=== PATIENT | female | born 1990 | race Caucasian/White ===

== ENCOUNTER → 2020-03-01 15:51 | Outpatient (BNVA) | payer OTHER, SELFPAY | PROVIDERS: Family Provider Family Medicine; PCP Family Medicine; Visit Provider Nurse Practitioner Family | DX: J02.9 Acute pharyngitis, unspecified (principal); R05 Cough; Z20.828 Contact with and (suspected) exposure to other viral communicable diseases | CPT/HCPCS: 87635 ==

== ENCOUNTER → 2020-07-24 09:13 | Outpatient (BNVA) | payer BC, SELFPAY | PROVIDERS: Family Provider Family Medicine; PCP Family Medicine; Visit Provider Nurse Practitioner Family | DX: M47.897 Other spondylosis, lumbosacral region (principal); M54.2 Cervicalgia; G89.29 Other chronic pain; M54.6 Pain in thoracic spine; M54.5 Low back pain | CPT/HCPCS: 72040; 72070; 72100 ==

== ENCOUNTER → 2021-03-07 14:09 | Outpatient (BNVA) | payer BC, SELFPAY | PROVIDERS: Family Provider Family Medicine; PCP Family Medicine; Visit Provider Nurse Practitioner Family | DX: R05.9 Cough, unspecified (principal); J39.8 Other specified diseases of upper respiratory tract; R06.02 Shortness of breath; R07.1 Chest pain on breathing; I42.9 Cardiomyopathy, unspecified | CPT/HCPCS: 71046; 80053; 83880; 85025 ==

== ENCOUNTER → 2022-12-05 13:56 | Outpatient (BNVA) | payer BC, SELFPAY | PROVIDERS: Family Provider Family Medicine; PCP Family Medicine; Visit Provider Nurse Practitioner Family | DX: J02.9 Acute pharyngitis, unspecified (principal) | CPT/HCPCS: 87071 ==

== ENCOUNTER 2023-05-12 10:32 | Emergency (ER) | payer BC, SELFPAY ==
--- NOTE | 2023-05-12 10:35 | XRR_ITS ---
PROCEDURE INFORMATION: Exam: XR Chest Exam date and time: 05/12/2023 10:52 AM Age: 33 years old Clinical indication: Chest wall pain; Additional info: Cp.No history of trauma or recent surgery is provided. TECHNIQUE: Imaging protocol: Radiologic exam of the chest. 1image(s) are provided. Views: 1 view. COMPARISON: 1. CR XR chest 2V* [id number] 03/07/2021 2:14 PM. Thoracic report 07/24/2020. 2. CR XR chest 1V [id number] 11/01/2018 2:[address] angio chest PE protcl [id number] 01/27/2018 3:26 AM FINDINGS: Lungs: There are chronic granulomatous changes present similar overall.No lobar consolidation is appreciated. There is minimal subsegmental atelectasis versus post inflammatory scarring demonstrated. Pleural spaces: No pneumothorax or significant pleural effusion is appreciated. Heart/Mediastinum: The cardiomediastinal silhouette is within normal. No cardiac decompensation is appreciated. Diaphragm: The hemidiaphragms are relatively symmetric. Bones/joints: Osseous alignment is maintained.No interval displaced fracture or dislocation is appreciated. Soft tissues: No radiopaque foreign body or subcutaneous emphysema is appreciated. Other findings: No other significant interval changes are appreciated. XR/XR chest 1V portable [id number] IMPRESSION: No lobar consolidation is appreciated.No interval acute cardiopulmonary changes are appreciated.
--- NOTE | 2023-05-12 10:40 | ECG_ITS ---
[facility] Test Date: 2023-05-12 Pat Name: Sunita Murphy Department: Room: Gender: Female Pbx Manager: : 1990 Requested By: Susanne Anglin Order Number: [id number] Dinora MD: April Freeman M.D. Measurements Intervals [place] Rate: 91 P: 64 DE: 167 QRS: 61 QRSD: 106 T: 60 QT: 355 QTc: 437 Interpretive Statements SINUS RHYTHM INCOMPLETE RIGHT BUNDLE BRANCH BLOCK [90+ ms QRS DURATION, TERMINAL R IN V1/V2, 40+ ms S IN I/aVL/V4/V5/V6] No previous ECG available for comparison Electronically Signed On 05-13-2023 0:31:00 MAGNETIC PROSPECTING OPERATOR by April Freeman M.D. [id number]
[2023-05-12 10:54] VITALS: BP 143/90; PULSE 85; RESP 17; TEMP 37.1; O2SAT 98; BMI 34.4
[2023-05-12 11:03] LABS: Basophils # 0.1 10^3/uL (0.0-0.1); Basophils % 0.6 %; Eosinophils # 0.2 10^3/uL (0.0-0.8); Eosinophils % 1.7 %; Hematocrit 44.4 % (36-47); Lymphocytes # 2.8 10^3/uL (0.8-4.8); Lymphocytes % 27.5 %; Mean Corpuscular HGB Conc 32.7 g/dL (30-55); Mean Corpuscular Volume 91.7 fl (85-98); Mean Platelet Volume 9.3 fL (7.4-10.4); Monocytes # 0.7 10^3/uL (0.2-0.9); Monocytes % 6.7 %; Neutrophils # 6.34 10^3/uL (1.8-7.7); Neutrophils % 63.3 %; Nucleated Red Blood Cells % 0 %; Platelet Count 240 10^3/cmm (157-399); Red Blood Count 4.84 10^6/uL (3.85-5.65); Red Cell Distribution Width 12.2 % (12.1-15.1); White Blood Count 10.02 10^3/uL (3.29-11.43)
--- NOTE | 2023-05-12 11:12 | ED_ITS ---
HPI - URI/Sore Throat 2 General: Chief Complaint: Upper Respiratory Infection Stated Complaint: chest pain Time Seen by Provider: 05/12/23 10:57 Source: patient Mode of arrival: ambulatory Limitations: no limitations History of Present Illness: 33-year-old female with history of postp artum cardiomyopathy 5 years ago states she has had cough congestion over the last 2 days. States she been having some sharp stabbing pains in her chest especially with her cough. She had some dyspnea denies any fever she denies any worsening improving factors states her pain is currently a 2 out of 10. Denies any extremity swelling. Associated symptoms: Reports chest pain; Deny abdominal pain, chills, diarrhea, fever(s), headache(s), nausea or vomiting Review of Systems 2 Const: Denies: fever(s), chills, body aches or change in appetite ENMT: Denies: throat pain or dental pain Card: Reports: chest pain Resp: Reports: dyspnea and non-productive cough GI: Denies: abdominal pain, nausea, vomiting or diarrhea Musc: Denies: neck pain or back pain Skin/Breast: Denies: rash Neuro: Denies: headache(s) PFSH ED 2 PFSH: Medical History (Updated 05/12/23 @ 12:05 by Susanne Anglin MD) Cardiomyopathy Hx LEEP (loop electrosurgical excision procedure), cervix, Surgical History Hx of myringotomy Hx of tonsillectomy Family History Other CAD (coronary artery disease) Cancer Diabetes Social History Smoking and tobacco/nicotine status: never used tobacco/nicotine Quit status (tobacco/nicotine): has tried quititng Second hand smoke exposure: Yes Lives independently: Yes Household members: spouse and children Marital status: Current occupational status: employed Current gender identity: Female Female Reproductive History: Para: 5 Physical Exam 2 Const: COMMON NORMALS: no acute distress, patient oriented x3 and healthy appearing HENMT: COMMON NORMALS: normocephalic and atraumatic HEAD & SCALP: n ormocephalic and atraumatic Eye: COMMON NORMALS: Equal, round and reactive pupils present and EOMs intact bilaterally PUPIL: Yes Equal, round and reactive pupils present Neck/C-Spine: COMMON NORMALS: full ROM and supple Chest: COMMONS NORMALS: normal inspection of the chest and normal palpation of entire chest wall Resp: COMMON NORMALS: normal respiratory effort, No retractions, No use of accessory muscles and clear to auscultation bilaterally AUSCULTATION: clear to auscultation bilaterally Cardio: COMMON NORMALS: regular rate, regular rhythm and No murmurs present (Cardio) RATE: regular rate RHYTHM: regular rhythm GI: COMMON NORMALS: Normal to inspection, nondistended, normoactive bowel sounds present, Soft to palpation, non-tender and no masses PALPATION: Yes Soft to palpation Extremity: COMMON NORMALS: normal to inspection and full ROM Neuro: COMMON NORMALS: patient oriented x3, moves all extremities and no focal motor deficits Psych: COMMON NORMALS: mental status grossly normal, Normal thought process present and cooperative THOUGHT PROCESS: Normal thought process present Skin: COMMON NORMALS: no rashes or lesions noted and no wounds GENERAL SKIN EXAM: no rashes or lesions noted Course 2 Vital Signs: Vital signs: Vital Signs Temperature 98.8 F 05/12/23 10:54 Pulse Rate 85 05/12/23 10:54 Respiratory Rate 17 05/12/23 10:54 Blood Pressure 143/90 05/12/23 10:54 Pulse Oximetry 98 05/12/23 10:54 Oxygen Delivery Me thod Room Air 05/12/23 10:54 MDM - URI/Sore Throat Medical Decision Making Patient presents here with cough congestion likely viral upper EXTR infection blood work x-ray EKG are normal her chest pain is likely chest wall pain from coughing or pleuritic in nature. No signs of pulmonary embolism or dissection she is stable for discharge she is follow-up with PCP and return if worsening. Medical Records I reviewed the patient's medical records. Lab Data I reviewed the patient's lab results. 05/12/23 10:48 05/12/23 10:48 Radiology Impressions Chest X-Ray 05/12/23 10:35 IMPRESSION: No lobar consolidation is appreciated.No interval acute cardiopulmonary changes are appreciated. Laboratory Results WBC 10.02 10^3/uL (3.29-11.43) 05/12/23 10:48 RBC 4.84 10^6/uL (3.85-5.65) 05/12/23 10:48 Hgb 14.50 g/dL (11.27-16.99) 05/12/23 10:48 Hct 44.4 % (36-47) 05/12/23 10:48 MCV 91.7 fl (85-98) 05/12/23 10:48 MCH 30.0 pg (27-33) 05/12/23 10:48 MCHC 32.7 g/dL (30-55) 05/12/23 10:48 RDW 12.2 % (12.1-15.1) 05/12/23 10:48 Plt Count 240 10^3/cmm (157-399) 05/12/23 10:48 MPV 9.3 fL (7.4-10.4) 05/12/23 10:48 Neut % (Auto) 63.3 % 05/12/23 10:48 Lymph % (Auto) 27.5 % 05/12/23 10:48 [place] % (Auto) 6.7 % 05/12/23 10:48 Eos % (Auto) 1.7 % 05/12/23 10:48 Baso % (Auto) 0.6 % 05/12/23 10:48 Neut # (Auto) 6.34 10^3/uL (1.8-7.7) 05/12/23 10:48 Lymph # (Auto) 2.8 10^3/uL (0.8-4.8) 05/12/23 10:48 [place] # (Auto) 0.7 10^3/uL (0.2-0.9) 05/12/23 10:48 Eos # (Auto) 0.2 10^3/uL (0.0-0.8) 05/12/23 10:48 Baso # (Auto) 0.1 10^3/uL (0.0-0.1) 05/12/23 10:48 Nucleated RBC % (auto) 0 % 05/12/23 10:48 Nucleated RBCs # 0.0 /100WBC 05/12/23 10:48 Sodium 139 mmol/L (136-145) 05/12/23 10:48 Potassium 3.8 mmol/L (3.5-5.1) 05/12/23 10:48 Chloride 100 mmol/L (98-107) 05/12/23 10:48 Carbon Dioxide 30 mmol/L (22-29) H 05/12/23 10:48 Anion Gap 12.8 (5-19) 05/12/23 10:48 BUN 13 mg/dL (6-20) 05/12/23 10:48 Creatinine 0.9 mg/dL (0.5-0.9) 05/12/23 10:48 GFR Calculation 72.6 mL/min (90-130) L 05/12/23 10:48 Glucose 92 mg/dL (65-115) 05/12/23 10:48 Calculated Osmolality 288 mOsm/kg (285-295) 05/12/23 10:48 Calcium 9.6 mg/dL (8.5-10.5) 05/12/23 10:48 Total Bilirubin 0.4 mg/dL (0.15-1.2) 05/12/23 10:48 AST 19 U/L (0-32) 05/12/23 10:48 ALT 21 U/L (0-33) 05/12/23 10:48 Alkaline Phosphatase 111 U/L (35-105) H 05/12/23 10:48 Troponin T Baseline < 6 ng/L (0-10) 05/12/23 10:48 NT-Pro-B Natriuret Pep 55 pg/mL (0-125) 05/12/23 10:48 Total Protein 7.3 g/dL (6.6-8.7) 05/12/23 10:48 Albumin 4.7 g/dL (3.5-5.2) 05/12/23 10:48 Globulin 2.6 g/dL (1.3-4.6) 05/12/23 10:48 Lipase 40 U/L (13-60) 05/12/23 10:48 Influenza Type A Ag negative (Negative) 05/12/23 11:21 Influenza Type B Ag negative (Negative) 05/12/23 11:21 SARS-CoV-2 Ag (Rapid) negative (Negative) 05/12/23 11:21 All radiology interpretation(s) finalized by discharge EKG Data EKG 1: I personally reviewed and interpreted this EKG as follows: EKG interpretation date: 05/12/23 EKG interpretation time: 10:40 Interpretation: nsr hr [address] or t wave abnormalities qrs 106 qtc 403 Discharge Plan Discharge Patient Disposition: Home Clinical Impression: Chest pain Upper respiratory infection Qualifiers: URI type: unspecified URI Qualified Code(s): J06.9 - Acute upper respiratory infection, unspecified Condition: Stable Prescriptions: No Action nitroglycerin 0.4 mg tablet, sublingual 0.4 mg SUBLINGUAL Q5M PRN Rx Instructions: NOT TO EXCEED MORE THAN 3 methylprednisolone [Medrol (Bryant)] 4 mg tablets,dose pack See Rx Instructions PO PER PKG DIR Qty: 21 0RF Rx Instructions: PO PER PKG DIR doxycycline hyclate 100 mg tablet 100 mg PO BID 10 Days Qty: 20 0RF Paxlovid 300 mg (150 mg x 2)-100 mg tablets,dose pack See Rx Instructions PO .COMPLEX Qty: 30 0RF Rx Instructions: take TWO 150 mg tablets of nirmatrelvir with ONE 100 mg tablet of ritonavir twice daily for 5 days PO cyclobenzaprine 10 mg tablet 10 mg PO TID PRN (Reason: muscle spasm) Qty: 90 0RF famotidine [Pepcid] 40 mg tablet 40 mg PO DAILY PRN (Reason: allergic reaction ) 90 Days Qty: 90 0RF Discharge Orders: Discharge ED (Routine); Ordered 05/12/23 Ordered By: Susanne Anglin Referrals: Liya Wayne NP [Primary Care Provider] - 1-3 days Discharge Diet: Advance as tolerated Discharge Activity: Resume usual activity Patient Instructions: Upper Respiratory Infection (ED) Coding Level of Care Code ED Senior Tableau Developer for So Aguilar
[2023-05-12 11:19] LABS: Troponin(5th) Baseline < 6 ng/L (0-10)
[2023-05-12 11:24] LABS: Alanine Aminotransferase 21 U/L (0-33); Albumin Level 4.7 g/dL (3.5-5.2); Alkaline Phosphatase 111 U/L (35-105); Anion Gap 12.8 (5-19); Aspartate Amino Transferase 19 U/L (0-32); Blood Urea Nitrogen 13 mg/dL (6-20); Calcium 9.6 mg/dL (8.5-10.5); Carbon Dioxide 30 mmol/L (22-29); Chloride 100 mmol/L (98-107); Globulin 2.6 g/dL (1.3-4.6); Glomerular Filtration Rate 72.6 mL/min (90-130); Glucose 92 mg/dL (65-115); Lipase 40 U/L (13-60); Osmolality Calculated 288 mOsm/kg (285-295); Potassium 3.8 mmol/L (3.5-5.1); Sodium 139 mmol/L (136-145); Total Bilirubin 0.4 mg/dL (0.15-1.2); Total Protein 7.3 g/dL (6.6-8.7)
[2023-05-12 11:52] LABS: Influenza A by IFA negative (Negative); Influenza B by IFA negative (Negative)
[2023-05-12 11:53] LABS: NT Pro B Type Natriuretic Pept 55 pg/mL (0-125)
[2023-05-12 11:56] LABS: SARS Covid-2 Antigen negative (Negative)
[2023-05-12] MEDS: dexamethasone 10 mg/mL INJ IM (12:00)
[2023-05-12 12:09] VITALS: O2SAT 97
== END 2023-05-12 12:18 | disposition home or self-care (01) ==
PROVIDERS: Emergency Provider Emergency Medicine; PCP Nurse Practitioner Family
DX: J06.9 Acute upper respiratory infection, unspecified (principal); R07.9 Chest pain, unspecified; Z11.52 Encounter for screening for COVID-19; I42.9 Cardiomyopathy, unspecified
CPT/HCPCS: 36415; 71045; 80053; 83690; 83880; 84484; 85025; 87426; 87804; 93005; 96372; 99285; J1100

== ENCOUNTER 2023-09-06 17:45 | Emergency (ER) | payer BC, SELFPAY ==
[2023-09-06 17:57] VITALS: BP 153/100; PULSE 65; RESP 17; TEMP 36.4; O2SAT 98; BMI 34.9
--- NOTE | 2023-09-06 19:02 | CTR_ITS ---
PROCEDURE INFORMATION: Exam: CT Head Without Contrast Exam date and time: 09/06/2023 7:19 PM Age: 33 years old Clinical indication: Pain; Headache; Patient HX: Frontal RAJAN with fever; Additional info: Frontal headache TECHNIQUE: Imaging protocol: Computed tomography of the head without contrast. Radiation optimization: All CT scans at this facility use at least one of these dose optimization techniques: automated exposure control; mA and/or kV adjustment per patient size (includes targeted exams where dose is matched to clinical indication); or iterative reconstruction. COMPARISON: CR XR cervical spine 3V* [id number] 07/24/2020 9:19 AM RADIATION DOSE METRICS: Total DLP (mGy-cm): 1068.8 FINDINGS: Brain: No hemorrhage, periventricular white matter disease. No mass effect. Basal cisterns are patent. Cerebral ventricles: No ventriculomegaly. Paranasal sinuses: Diffuse mucosal thickening of the left frontal, sphenoid, bilateral ethmoidal sinuses. No air-fluid levels. Mastoid air cells: Mastoid air cells are aerated with no effusions. Bones/joints: No acute fracture. Soft tissues: Unremarkable. CT/CT head wo con* [id number] IMPRESSION: 1. No acute intracranial abnormality. 2. Chronic sinusitis affecting the left frontal, sphenoid, ethmoid sinuses.
--- NOTE | 2023-09-06 19:02 | XRR_ITS ---
PROCEDURE INFORMATION: Exam: XR Chest Exam date and time: 09/06/2023 7:08 PM Age: 33 years old Clinical indication: Shortness of breath; Patient HX: SOB; Migraine; Intermittent fever TECHNIQUE: Imaging protocol: Radiologic exam of the chest. Views: 1 view. COMPARISON: CR XR chest 1V portable [id number] 05/12/2023 10:52 AM FINDINGS: Lungs: No focal consolidation or other acute appearing pulmonary opacity. Stable chronic granulomatous changes. Pleural spaces: No pleural effusion or pneumothorax noted. Heart/Mediastinum: There is no cardiomegaly. Bones/joints: No acute osseous abnormality. XR/XR chest 1V [id number] IMPRESSION: No acute cardiopulmonary disease.
--- NOTE | 2023-09-06 19:04 | ED_ITS ---
HPI - Fever 2 General: Chief Complaint: Fever Stated Complaint: head pains Time Seen by Provider: 09/06/23 19:00 History of Present Illness: 33-year-old female who presents the [facility] room with severe frontal/sinus headache, fevers, congestion and a dry cough. This been going on for over a week now. Worsening. The headache is her primary complaint at this time. No chest pain. No abdominal pain. No nausea or vomiting. Review of Systems 2 Narrative: Constitutional symptoms: Negative except as documented in HPI. Skin symptoms: Negative except as documented in HPI. Eye symptoms: Negative except as documented in HPI. ENMT symptoms: Negative except as documented in HPI. Respiratory symptoms: Negative except as documented in HPI. Cardiovascular symptoms: Negative except as documented in HPI. Gastrointestinal symptoms: Negative except as documented in HPI. Genitourinary symptoms: Negative except as documented in HPI. Musculoskeletal symptoms: Negative except as documented in HPI. Neurologic symptoms: Negative except as documented in HPI. Psychiatric symptoms: Negative except as documented in HPI. Endocrine symptoms: Negative except as documented in HPI. PFSH ED 2 PFSH: Medical History (Updated 09/06/23 @ 20:09 by Joanna Lopez MD) Cardiomyopathy Hx LEEP (loop electrosurgical excision procedure), cervix, Surgical History Hx of myringotomy Hx of tonsillectomy Family History Other CAD (coronary artery disease) Cancer Diabetes Social History Smoking and tobacco/nicotine status: never used tobacco/nicotine Quit status (tobacco/nicotine): has tried quititng Second hand smoke exposure: Yes Lives independently: Yes Household members: spouse and children Marital status: Current occupational status: employed Current gender identity: Female Female Reproductive History: Para: 5 Physical Exam 2 Narrative: EXAM NARRATIVE: General: Alert, no acute distress. Skin: Warm, dry. Head: Normocephalic, atraumatic. Neck: Supple, trachea midline. Eye: Extraocular movements are intact. Ears, nose, mouth and throat: mucosa moist. Cardiovascular: Regular, Normal peripheral perfusion. Respiratory: Lungs are clear to auscultation, respirations are non-labored, breath sounds are equal, Symmetrical chest wall expansion. Gastrointestinal: Soft, Nontender, Non distended, Normal bowel sounds. Musculoskeletal: Normal ROM, no deformity. Neurological: Alert and oriented, No focal neurological deficit observed. Psychiatric: Cooperative, appropriate mood & affect. Course 2 Vital Signs: Vital signs: Vital Signs Temperature 97.5 F L 09/06/23 17:57 Pulse Rate 68 09/06/23 19:48 Respiratory Rate 16 09/06/23 19:48 Blood Pressure 149/98 09/06/23 19:48 Pulse Oximetry 99 09/06/23 19:48 Oxygen Delivery Me thod Room Air 09/06/23 19:48 MDM - Fever Medical Decision Making Medical decision making: Differential diagnosis including but not limited to and based on the above HPI, review of systems and physical exam: Concern for sinusitis. Also would have concern for viral illness such as flu or COVID which we have tested for. Chest x-ray to rule out pneumonia. Basic lab work. Orders placed to evaluate differential diagnosis based on the above differential, HPI and physical exam Lab Review: Laboratory results were reviewed and interpreted by myself the emergency room physician. Chest x-ray: No acute process. No infiltrate. No pneumothorax. No cardiomegaly. This was reviewed and interpreted by myself the ER physician. CT head: Patient does have what appears to be sinusitis, particular on the left. No acute intracranial process. no intracranial hemorrhage, no evidence of infarct. no evidence of acute fracture.This was reviewed and interpreted by myself the ER physician. I reviewed the patient's medical record. Lab Data 09/06/23 19:30 09/06/23 19:30 Radiology Impressions Chest X-Ray 09/06/23 19:02 IMPRESSION: No acute cardiopulmonary disease. Head CT 09/06/23 19:02 IMPRESSION: 1. No acute intracranial abnormality. 2. Chronic sinusitis affecting the left frontal, sphenoid, ethmoid sinuses. Laboratory Results WBC 10.77 10^3/uL (3.29-11.43) 09/06/23 19:30 RBC 5.20 10^6/uL (3.85-5.65) 09/06/23 19:30 Hgb 15.70 g/dL (11.27-16.99) 09/06/23 19:30 Hct 46.8 % (36-47) 09/06/23: MCV 90.0 fl (85-98) 09/06/23: MCH 30.2 pg (27-33) 09/06/23: MCHC 33.5 g/dL (30-55) 09/06/23: RDW 12.5 % (12.1-15.1) 09/06/23 Plt Count 257 10^3/cmm (157-399) 09/06/23 MPV 9.0 fL (7.4-10.4) 09/06/23: Neut % (Auto) 60.9 % 09/06/23: Lymph % (Auto) 31.6 % 09/06/23: [place] % (Auto) 4.9 % 09/06/23: Eos % (Auto) 1.9 % 09/06/23 Baso % (Auto) 0.5 % 09/06/23 Neut # (Auto) 6.56 10^3/uL (1.8-7.7) 09/06/23 Lymph # (Auto) 3.4 10^3/uL (0.8-4.8) 09/06/23 [place] # (Auto) 0.5 10^3/uL (0.2-0.9) 09/06/23 Eos # (Auto) 0.2 10^3/uL (0.0-0.8) 09/06/23 Baso # (Auto) 0.1 10^3/uL (0.0-0.1) 09/06/23 Nucleated RBC % (auto) 0 % 09/06/23 Nucleated RBCs # 0.0 /100WBC 09/06/23: Sodium 136 mmol/L (136-145) 09/06/23 Potassium 3.5 mmol/L (3.5-5.1) 09/06/23 Chloride 100 mmol/L (98-107) 09/06/23: Carbon Dioxide 27 mmol/L (22-29) 09/06/23: Anion Gap 12.5 (5-19) 04/21/24 19:30 BUN 13 mg/dL (6-20) 09/06/23 19:30 Creatinine 0.7 mg/dL (0.5-0.9) 09/06/23 19:30 GFR Calculation 97.0 mL/min (90-130) 09/06/23 19:30 Glucose 96 mg/dL (65-115) 09/06/23 19:30 Calculated Osmolality 282 mOsm/kg (285-295) L 09/06/23 19: Calcium 9.2 mg/dL (8.5-10.5) 09/06/23 19:30 Total Bilirubin 0.4 mg/dL (0.15-1.2) 09/06/23 19: AST 20 U/L (0-32) 09/06/23 19: ALT 28 U/L (0-33) 09/06/23 19:30 Alkaline Phosphatase 128 U/L (35-105) H 09/06/23 19: C-Reactive Protein 4.8 mg/L (0.0-4.9) 09/06/23 19:30 Total Protein 8.0 g/dL (6.6-8.7) 09/06/23 19:30 Albumin 4.5 g/dL (3.5-5.2) 09/06/23 19:30 Globulin 3.5 g/dL (1.3-4.6) 09/06/23 19:30 Influenza Type A Ag negative (Negative) 09/06/23 19:15 Influenza Type B Ag negative (Negative) 09/06/23 19:15 SARS-CoV-2 Ag (Rapid) negative (Negative) 09/06/23 19:15 All radiology interpretation(s) finalized by discharge Other Data Assessment and plan: -IM Decadron and p.o. doxycycline in the emergency room. - Discharged home - Discussed plan with patient. Answered any questions. - Evaluation and treatment of this problem were appropriate in the emergency setting. Discharge Plan Discharge Patient Disposition: Home Clinical Impression: Sinusitis Condition: Stable Prescriptions: New doxycycline hyclate 100 mg capsule 100 mg PO BID 10 Days Qty: 20 0RF dexamethasone 6 mg tablet 6 mg PO DAILY 5 Days Qty: 5 0RF No Action levocetirizine [Xyzal] 5 mg tablet 5 mg PO DAILY 90 Days Qty: 90 1RF fluticasone propionate 50 mcg/actuation spray,suspension 2 spray intranasal DAILY Qty: 16 4RF Rx Instructions: administer into each nostril Discharge Orders: Discharge ED (Routine); Ordered 09/06/23 Ordered By: Joanna Lopez Referrals: Liya Wayne NP [Primary Care Provider] - (You have been screened and evaluated and felt safe for discharge. Health conditions do change or evolve sometimes and as such it is important that you follow up with your Primary Doctor to be re checked, 3-5 days is a general good time frame for follow up. You are always welcome to return to the ED for re assessment if your symptoms are worsening or you have new concerns) Discharge Diet: Usual diet Discharge Activity: Resume usual activity Patient Instructions: Opioid Safety, Pain Management Coding Level of Care Code ED Medical Donation Professional for [employer] Aguilar
[2023-09-06 19:36] LABS: Basophils # 0.1 10^3/uL (0.0-0.1); Basophils % 0.5 %; Eosinophils # 0.2 10^3/uL (0.0-0.8); Eosinophils % 1.9 %; Hematocrit 46.8 % (36-47); Lymphocytes # 3.4 10^3/uL (0.8-4.8); Lymphocytes % 31.6 %; Mean Corpuscular HGB Conc 33.5 g/dL (30-55); Mean Corpuscular Hemoglobin 30.2 pg (27-33); Monocytes # 0.5 10^3/uL (0.2-0.9); Monocytes % 4.9 %; Neutrophils # 6.56 10^3/uL (1.8-7.7); Neutrophils % 60.9 %; Nucleated Red Blood Cells % 0 %; Platelet Count 257 10^3/cmm (157-399); Red Cell Distribution Width 12.5 % (12.1-15.1); White Blood Count 10.77 10^3/uL (3.29-11.43)
[2023-09-06 19:48] VITALS: BP 149/98; PULSE 68; RESP 16; O2SAT 99
[2023-09-06 19:53] LABS: Alanine Aminotransferase 28 U/L (0-33); Albumin Level 4.5 g/dL (3.5-5.2); Alkaline Phosphatase 128 U/L (35-105); Anion Gap 12.5 (5-19); Aspartate Amino Transferase 20 U/L (0-32); Blood Urea Nitrogen 13 mg/dL (6-20); C Reactive Protein 4.8 mg/L (0.0-4.9); Calcium 9.2 mg/dL (8.5-10.5); Carbon Dioxide 27 mmol/L (22-29); Chloride 100 mmol/L (98-107); Creatinine Clr Calc Pharmacy 145.8425; Globulin 3.5 g/dL (1.3-4.6); Glucose 96 mg/dL (65-115); Osmolality Calculated 282 mOsm/kg (285-295); Potassium 3.5 mmol/L (3.5-5.1); Sodium 136 mmol/L (136-145); Total Bilirubin 0.4 mg/dL (0.15-1.2)
[2023-09-06 19:54] LABS: SARS Covid-2 Antigen negative (Negative)
[2023-09-06 19:55] LABS: Influenza A by IFA negative (Negative); Influenza B by IFA negative (Negative)
[2023-09-06] MEDS: doxycycline 100 mg Tablet PO (20:18)
[2023-09-06] MEDS: dexamethasone 10 mg/mL INJ IM (20:18)
[2023-09-06 20:28] VITALS: BP 149/98; PULSE 68; RESP 16; TEMP 36.4; O2SAT 99
== END 2023-09-06 20:20 | disposition home or self-care (01) ==
PROVIDERS: Emergency Provider Emergency Medicine; PCP Nurse Practitioner Family
DX: J32.9 Chronic sinusitis, unspecified (principal); Z11.52 Encounter for screening for COVID-19; I42.9 Cardiomyopathy, unspecified; Z77.22 Contact with and (suspected) exposure to environmental tobacco smoke (acute) (chronic)
CPT/HCPCS: 36415; 70450; 71045; 80053; 85025; 86140; 87426; 87804; 96372; 99284; J1100